=== PATIENT | male | born 1985 | race Caucasian/White ===

== ENCOUNTER 2016-10-28 17:09 | Emergency (ER) | payer OTHER ==
[2016-10-28 17:37] VITALS: BP 122/68; PULSE 69; RESP 18; TEMP 98.4; O2SAT 97
--- NOTE | 2016-10-28 18:03 | UCPHY ---
H & P Time Seen by Provider: 10/28/16 17:54 Patient Type: New HPI/ROS: Chief complaint. Sore throat HPI. 31-year-old male sore throat for 5 days. He knows white spots on the back of his throat today. He has had fever to 101.8 degrees. No runny nose or congestion. Recent travel to [place]. No vomiting or cough. Did have a flat reddish rash on the anterior chest 2-3 days ago but it is now resolved. No abdominal pain. ROS Constitutional. Fever Eyes. no problems with vision ENT. Sore throat Cardiovascular. no chest pain Respiratory. no shortness of breath, no cough Abdominal. no abdominal pain, no nausea/vomiting, no diarrhea . no problems urinating MS. no calf pain/swelling, no neck/back pain, no joint pain Skin. no rash Lymph. no swollen glands Neuro. no headache, no dizziness, no difficulty walking or with speech Past Medical/Surgical History: Thoracic outlet syndrome with rib removed Social History: , nonsmoker, no alcohol Smoking Status: Never smoked Physical Exam: General Appearance: Alert well-developed male mild distress vital signs are stable. Afebrile Eyes: Pupils equal and round no pallor or injection. ENT, tympanic membranes are normal. Pharynx injected with minimal exudate. Mild anterior cervical adenopathy Respiratory: There are no retractions, lungs are clear to auscultation. Cardiovascular: Regular rate and rhythm. Gastrointestinal: Abdomen is soft and nontender, no masses, bowel sounds normal. Neurological: Awake and alert, sensory and motor exams grossly normal. Skin: Warm and dry, no rashes. Musculoskeletal: Neck is supple nontender. Extremities symmetrical, full range of motion. Psychiatric: Patient is oriented X 3, there is no agitation. Constitutional: Initial Vital Signs Temperature (C) 36.9 C 10/28/16 17:34 Heart Rate 69 10/28/16 17:34 Respiratory Rate 18 10/28/16 17:34 Blood Pressure 122/68 H 10/28/16 17:34 O2 Sat (%) 97 10/28/16 17:34 O2 Delivery Mode Room Air Allergies/Adverse Reactions: No Known Allergies Allergy (Unverified 10/28/16 17:34) Home Medications: Medication Instructions Recorded Penicillin V Potassium [Penicillin 500 mg PO TID #21 tab 10/28/16 VK] Medical Decision Making ED Course/Re-evaluation: Strep screen negative. Decadron by mouth Patient remained stable on re-evaluation The patient and I discussed laboratory evaluation, treatment plan including criteria for return importance of follow-up and further evaluation. He expresses understanding and agreement Differential Diagnosis: I considered strep pharyngitis, viral syndrome, mononucleosis - Data Points Laboratory Results: 10/28/16 10/28/16 Unknown 14:40 Group A Strep Screen NEGATIVE (NEGATIVE) Group A Strep DNA Pending Departure - Departure Disposition: Home, Routine, Self-Care Clinical Impression: Pharyngitis Qualifiers: Pharyngitis/tonsillitis etiology: unspecified etiology Qualifier Code: (J02.9) Acute pharyngitis, unspecified Condition: Good Instructions: Pharyngitis (ED) Additional Instructions: Drink plenty of fluids and stay hydrated. Tylenol 1000 mg every 4-6 hours, ibuprofen 600 mg every 6 hours as needed for fever. Return for worsening symptoms including difficulty swallowing or breathing. Re-evaluation in 2-3 days if not improving Referrals: NONE *PRIMARY CARE P,. [Primary Care Provider] - As per Instructions Krysten Jones DO [Doctor of Osteopathy] - 2-3 days, if not improved Prescriptions: Penicillin V Potassium [Penicillin VK] 500 mg PO TID #21 tab - PQRS PQRS Measurement: 134: Depression screening and followup, PRIME MD-PHQ2 (12 years and older) Over the last 2 weeks, how often have you been bothered by any of the following problems? 1. Feeling down, depressed, or hopeless? 2. Little interest or pleasure in doing things? Patient answered no to both 1 and 2 130: Documentation of medications. Reviewed all patient medications, doses, route and frequency. 226: Do you smoke? No.
[2016-10-28] MEDS ORDERED: DEXAMETHASONE 4 MG TAB PO ONE (18:04)
== END 2016-10-28 18:23 | disposition home or self-care (01) ==
LOC: CED 17:09
DX: J02.9 Acute pharyngitis, unspecified (principal)
CPT/HCPCS: 87880-PO; 99203-PO; G0463-PO